=== PATIENT | male | born 1960 | race Caucasian/White ===

== ENCOUNTER 2018-10-16 08:58 | Emergency (ER) | payer OTHER ==
[~2018-10-16] VITALS: Ht 177.8 cm; Wt 109.8 kg
[~2018-10-16 08:58] MED LIST: ALEVE220 MG PO; ASPIR 8181 MG PO; CYCLOBENZAPRINE10 MG PO; DICLOFENAC SODI75 MG PO; FENOFIBRATE160 MG PO; FLONASE ALLERG9.9 ML NAS; GABAPENTIN300 MG PO; HYDROCODON-ACE1 EA10 PO; MIRAPEX0.125 MG PO; NORCO 10-325 T1 EACH PO; OXYCONTIN10 MG PO; PIROXICAM10 MG PO; PRAMIPEXOLE DI1.5 MG PO; THERAPEUTIC M1 EAC2 PO; XARELTO10 MG PO
[2018-10-16] MEDS ORDERED: ATORVASTATIN CA20 MG PO (09:05)
[2018-10-16] MEDS ORDERED: DICLOFENAC SOD100 G1 TOP (09:06)
== END 2018-10-16 09:20 | disposition home or self-care (01) ==
LOC: ED 08:58
DX: M54.9 Dorsalgia, unspecified (principal)

== ENCOUNTER 2020-09-27 21:43 | Emergency (ER) | payer OTHER ==
[~2020-09-27] VITALS: Ht 177.8 cm; Wt 103.4 kg
[~2020-09-27 21:43] MED LIST changes: +ATORVASTATIN CA20 MG PO; +DICLOFENAC SOD100 G1 TOP
[2020-09-27] MEDS ORDERED: BUPROPION XL150 MG PO (21:51)
== END 2020-09-27 23:40 | disposition home or self-care (01) ==
LOC: ED 21:43
DX: U07.1 COVID-19 (principal); E78.00 Pure hypercholesterolemia, unspecified; Z88.0 Allergy status to penicillin; Z79.899 Other long term (current) drug therapy
CPT/HCPCS: 71045; 80053; 83605; 85025; 87040; 99285-25

== ENCOUNTER 2022-02-09 09:47 | Emergency (ER) | payer OTHER ==
[~2022-02-09] VITALS: Ht 172.7 cm; Wt 112.5 kg
[~2022-02-09 09:47] MED LIST changes: +BUPROPION XL150 MG PO
--- OUTSIDE RECORDS SUMMARY | 2022-02-09 09:50 | XMS ---
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 Sylwia has no Care Guidelines for this patient. Genny VISIT COUNT (12 MO.) 1 [facility] TOTAL 1 NOTE: Visits indicate total known visits. ED/C VISIT TRACKING (12 MO.) 02/09/2022 09:48 [facility] [place] TYPE: Emergency COMPLAINT: - HEART ISSUES INPATIENT VISIT TRACKING (12 MO.) No inpatient visits to display in this time frame [id number]
[2022-02-09] MEDS ORDERED: METOPROLOL SUCC25 MG PO ×2 (10:04→12:30)
[2022-02-09] MEDS ORDERED: GABAPENTIN600 MG PO (10:05)
[2022-02-09] MEDS ORDERED: BUPROPION XL300 MG PO (10:05)
--- NOTE | 2022-02-10 16:39 | NUR ---
Patient called and stated his Zio monitor fell off after about 3 hours yesterday. Patient came back in and I prepared skin as per I-Rhythm instructions and placed a new monitor. I added opsite tape and gave instructions on swimming, bathing and showering. Sent extra opsite home with patient.
--- NOTE | 2022-02-12 17:12 | EKG ---
[facility] [address] [facility] [place] [address] Signed Atrial fibrillation with rapid ventricular response Inferior infarct (cited on or before 09-FEB-2022) Abnormal ECG When compared with ECG of 31-JAN-2016 09:56, Atrial fibrillation has replaced Sinus rhythm Vent. rate has increased BY 50 BPM T wave amplitude has increased in Anterior leads Confirmed by Garry Love MD () on 02/12/2022 5:12:29 PM Electronically Signed By: GARRY LOVE MD 02/12/22 171 PATIENT NAME: CASTILLO CROWELL Electrocardiogram DATE OF : 56 PHYSICIAN: GARRY LOVE MD REPORT #: [id number] REPORT IS CONFIDENTIAL AND NOT TO BE RELEASED WITHOUT AUTHORIZATION
--- NOTE | 2022-02-12 17:14 | EKG ---
[facility] [address] [facility] [place] [address] Signed Normal sinus rhythm Minimal voltage criteria for LVH, may be normal variant ( R in aVL ) Borderline ECG When compared with ECG of 09-FEB-2022 09:44, (Unconfirmed) Sinus rhythm has replaced Atrial fibrillation Confirmed by Garry Love MD () on 02/12/2022 5:14:03 PM Electronically Signed By: GARRY LOVE MD 02/12/22 1714 PATIENT NAME: CASTILLO CROWELL Electrocardiogram DATE OF : 56 PHYSICIAN: GARRY LOVE MD REPORT #: [id number] REPORT IS CONFIDENTIAL AND NOT TO BE RELEASED WITHOUT AUTHORIZATION
== END 2022-02-09 13:08 | disposition home or self-care (01) ==
LOC: ED 09:47
DX: I48.0 Paroxysmal atrial fibrillation (principal); E78.00 Pure hypercholesterolemia, unspecified; Z88.0 Allergy status to penicillin; Z79.899 Other long term (current) drug therapy
CPT/HCPCS: 36415; 71045; 80053; 83735; 84484; 85025; 85610; 87502; 93005; 93010; 99285-25; U0003

== ENCOUNTER 2022-02-12 16:30 | Emergency (ER) | payer OTHER ==
[~2022-02-12] VITALS: Ht 172.7 cm; Wt 112.9 kg
[~2022-02-12 16:30] MED LIST changes: +BUPROPION XL300 MG PO; +GABAPENTIN600 MG PO; +METOPROLOL SUCC25 MG PO
--- OUTSIDE RECORDS SUMMARY | 2022-02-12 16:32 | XMS ---
PreManage Notification: CASTILLO CROWELL Security Pcas Events No recent Security Events currently on file CRITERIA MET - [facility] [place] - 2 Visits in 30 Days - [facility] [place] CARE PROVIDERS There are no care providers on record at this time. Sylwia has no Care Guidelines for this patient. Genny [facility] (12 MO.) [facility] NOTE: Visits indicate total known visits. ED/[facility] [place] VISIT TRACKING (12 MO.) 02/12/2022 16:31 [facility] COMPLAINT: - HEART PALPITATIONS 02/09/2022 09:48 [facility] [place] TYPE: Emergency COMPLAINT: - HEART ISSUES INPATIENT VISIT TRACKING (12 MO.) No inpatient visits to display in this time frame [id number]
--- NOTE | 2022-02-12 17:42 | EKG ---
[facility] [address] [facility] [place] [address] Signed Sinus rhythm with occasional premature ventricular complexes Otherwise normal ECG When compared with ECG of 09-FEB-2022 11:19, (Unconfirmed) premature ventricular complexes are now present Confirmed by Garry Love MD () on 02/12/2022 5:42:09 PM Electronically Signed By: GARRY LOVE MD 02/12/221741 PATIENT NAME: CASTILLO CROWELL Electrocardiogram DATE OF : 56 PHYSICIAN: GARRY LOVE MD REPORT #: [id number] REPORT IS CONFIDENTIAL AND NOT TO BE RELEASED WITHOUT AUTHORIZATION
== END 2022-02-12 18:42 | disposition home or self-care (01) ==
LOC: ED 16:30
DX: I48.0 Paroxysmal atrial fibrillation (principal); E78.00 Pure hypercholesterolemia, unspecified; Z88.0 Allergy status to penicillin; Z79.899 Other long term (current) drug therapy
CPT/HCPCS: 36415; 80053; 83735; 84484; 85025; 93005; 93010; 99285-25

== ENCOUNTER 2022-06-20 10:16 | Emergency (ER) | payer OTHER ==
[~2022-06-20] VITALS: Ht 172.7 cm; Wt 11260.4 kg
[2022-06-20] MEDS ORDERED: HYDROCODON-ACE1 EA11 PO (13:29)
[2022-06-20] MEDS ORDERED: LEVOFLOXACIN750 MG PO (13:29)
[2022-06-21] MEDS ORDERED: HYDROCODON-ACE1 EA11 PO (15:56)
== END 2022-06-20 15:29 | disposition home or self-care (01) ==
LOC: ED 10:16
DX: N45.3 Epididymo-orchitis (principal); N39.0 Urinary tract infection, site not specified; E78.00 Pure hypercholesterolemia, unspecified; Z88.0 Allergy status to penicillin; Z79.899 Other long term (current) drug therapy
CPT/HCPCS: 36415; 76870; 80053; 81001; 85025; 96365; 96366; 96375; 99284-25; A9270; J1170; J1885; J1956; J2405; J7030

== ENCOUNTER 2022-06-21 13:50 | Emergency (ER) | payer OTHER ==
[~2022-06-21] VITALS: Ht 172.7 cm; Wt 112.5 kg
[~2022-06-21 13:50] MED LIST changes: +HYDROCODON-ACE1 EA11 PO; +LEVOFLOXACIN750 MG PO
--- OUTSIDE RECORDS SUMMARY | 2022-06-21 13:52 | XMS ---
PreManage Notification: CASTILLO CROWELL Security Domestic Housekeeper Events No recent Security Events currently on file CRITERIA MET - [facility] - 2 Visits in 30 Days CARE PROVIDERS There are no care providers on record at this time. Sylwia has no Care Guidelines for this patient. Genny VISIT COUNT (12 MO.) [address] [facility] [place] TOTAL 4 NOTE: Visits indicate total known visits. ED/C VISIT TRACKING (12 MO.) 06/21/2022 13:51 [facility] TYPE: Emergency COMPLAINT: - TESTICULAR PAIN 06/20/2022 10:17 [facility] [place] TYPE: Emergency COMPLAINT: - R TESTICLE PAIN 02/12/2022 16:31 [facility] [place] TYPE: Emergency COMPLAINT: - HEART PALPITATIONS DIAGNOSES: - Other terminal computer operator (current) drug therapy - Pure hypercholesterolemia, unspecified - Allergy status to penicillin - Paroxysmal atrial fibrillation - Palpitations 02/09/2022 09:48 [facility] [place] TYPE: Emergency COMPLAINT: - HEART ISSUES DIAGNOSES: - Other terminal computer operator (current) drug therapy - Palpitations - Allergy status to penicillin - Pure hypercholesterolemia, unspecified - Contact with and (suspected) exposure to COVID-19 - Paroxysmal atrial fibrillation INPATIENT VISIT TRACKING (12 MO.) No inpatient visits to display in this time frame [id number]
[2022-06-21] MEDS ORDERED: HYDROCODON-ACE1 EA11 PO (15:56)
== END 2022-06-21 16:18 | disposition home or self-care (01) ==
LOC: ED 13:50
DX: N45.3 Epididymo-orchitis (principal); E78.00 Pure hypercholesterolemia, unspecified; Z88.0 Allergy status to penicillin; Z79.899 Other long term (current) drug therapy
CPT/HCPCS: 36415; 80053; 85025; 96374; 99284-25; A9270; J1885; J7030

== ENCOUNTER 2024-09-25 17:06 | Emergency (ER) | payer MEDICARE, OTHER ==
[~2024-09-25] VITALS: Ht 172.7 cm; Wt 114.5 kg
[~2024-09-25 17:06] MED LIST changes: +AMIODARONE HCL200 MG PO; +AMOX TR-K CLV1 EAC1 PO; +CEPHALEXIN500 M1 PO; +ELIQUIS5 MG PO; +FLOMAX0.4 MG PO; +METOPROLOL TART50 MG; +PANTOPRAZOLE SO40 MG PO; +ROSUVASTATIN CA10 MG PO; +SULFAMETHOXAZO1 EAC1 PO; +TORSEMIDE10 MG PO
[2024-09-25] MEDS ORDERED: OZEMPIC1 MG/0.71 SUB-Q (18:22)
[2024-09-25 18:43] LABS: BASOPHILS 0.6 % (0.2-1.2); EOSINOPHILS 1.7 % (0.8-7.0); HEMOGLOBIN 14.7 g/dL (13.7-17.5); LYMPHOCYTES 15.8 % (21.8-53.1); MCH 30.1 PG (25.7-32.2); MCHC 32.7 g/dL (32.3-36.5); MCV 92.2 fL (79.0-92.2); MONOCYTES 8.8 % (5.3-12.2); NEUTROPHILS 71.9 % (34.0-67.9); PLATELET COUNT 178 K/uL (163-337); RBC 4.88 M/uL (4.63-6.08)
[2024-09-25 19:02] LABS: ALBUMIN 3.7 g/dL (3.4-5.0); ALBUMIN/GLOBULIN RATIO 1.06 (1.1-2.4); ANION GAP 7.8 (7-21); BILIRUBIN, TOTAL 0.5 mg/dL (0.2-1.0); BUN/CREATININE RATIO 26.66 (6.0-28.6); CALCIUM 9.4 mg/dL (8.5-10.1); CREATININE, SERUM 0.75 mg/dL (0.70-1.30); MAGNESIUM 2.1 mg/dL (1.8-2.4); POTASSIUM 3.8 mmol/L (3.5-5.1); PROTEIN, TOTAL 7.2 g/dL (6.4-8.2)
[2024-09-25 19:03] LABS: INR 1.09 (0.80-1.30); PROTIME 13.5 Sec (11.2-14.2)
[2024-09-25 21:22] VITALS: BP 118/94
--- NOTE | 2024-09-25 21:44 | EKG ---
[facility] [address] [place] [address] Signed Sinus rhythm with frequent premature ventricular complexes Inferior infarct (cited on or before 27-JAN-2023) Cannot rule out Anterior infarct , age undetermined Abnormal ECG When compared with ECG of 27-JAN-2023 19:46, premature ventricular complexes are now present Nonspecific T wave abnormality, improved in Anterolateral leads Confirmed by Garry Love MD () on 09/25/2024 9:44:04 PM Electronically Signed By: GARRY LOVE MD 09/25/24 2144 PATIENT NAME: CASTILLO CROWELL Electrocardiogram DATE OF : 56 PHYSICIAN: GARRY LOVE MD REPORT #: [id number] REPORT IS CONFIDENTIAL AND NOT TO BE RELEASED WITHOUT AUTHORIZATION
== END 2024-09-25 21:22 | disposition home or self-care (01) ==
LOC: ED 17:06
PROVIDERS: Emergency Medicine
DX: I49.3 Ventricular premature depolarization (principal)
CPT/HCPCS: 36415; 71045; 80053; 83735; 84484; 85025; 85610; 93005; 93010; 93242; 93244; 99285-25

== ENCOUNTER 2024-12-04 12:24 | Emergency (ER) | payer MEDICARE, OTHER ==
[~2024-12-04] VITALS: Ht 172.7 cm; Wt 116.7 kg
[~2024-12-04 12:24] MED LIST changes: +OZEMPIC1 MG/0.71 SUB-Q
[2024-12-04] MEDS ORDERED: ALBUTEROL/IPRATROPIUM 3 ML NEB INH PRN (13:00)
[2024-12-04 13:13] LABS: BASOPHILS 0.4 % (0.2-1.2); EOSINOPHILS 1.9 % (0.8-7.0); LYMPHOCYTES 10.6 % (21.8-53.1); MCH 30.3 PG (25.7-32.2); MCHC 31.1 g/dL (32.3-36.5); MCV 97.3 fL (79.0-92.2); MONOCYTES 8.0 % (5.3-12.2); NEUTROPHILS 78.4 % (34.0-67.9); RBC 4.39 M/uL (4.63-6.08)
[2024-12-04 13:36] LABS: ALT (SGPT) 47.0 U/L (14-59); AST (SGOT) 29.0 U/L (15-37); GLOMERULAR FILTRATION RATE,EST 99.0 mL/min (>60); PROTEIN, TOTAL 6.6 g/dL (6.4-8.2); UREA NITROGEN 19.0 mg/dL (7-18)
[2024-12-04] MEDS ORDERED: FUROSEMIDE 40 MG/4 ML VIAL IV ONE ×2 (14:15→17:15)
[2024-12-04 15:08] LABS: INFLUENZA B NAA NEGATIVE (NEGATIVE); RESPIRATORY SYNCYTIAL VIR NAA NEGATIVE (NEGATIVE)
[2024-12-04 18:45] VITALS: BP 116/93
--- NOTE | 2024-12-05 11:43 | EKG ---
[facility] [address] [facility] [place], [place] [address] Signed Normal sinus rhythm Cannot rule out Inferior infarct (cited on or before 27-JAN-2023) Abnormal ECG When compared with ECG of 03-OCT-2024 12:21, No significant change was found Confirmed by Leonel Gomez MD ([id number]) on 12/05/2024 11:43:11 AM Electronically Signed By: LEONEL GOMEZ MD 12/05/24 1143 PATIENT NAME: CASTILLO CROWELL Electrocardiogram DATE OF : 56 PHYSICIAN: LEONEL GOMEZ MD REPORT #: [id number] REPORT IS CONFIDENTIAL AND NOT TO BE RELEASED WITHOUT AUTHORIZATION
== END 2024-12-04 18:50 | disposition home or self-care (01) ==
LOC: ED 12:24
PROVIDERS: Emergency Medicine
DX: I50.9 Heart failure, unspecified (principal); Z79.01 Long term (current) use of anticoagulants; Z79.899 Other long term (current) drug therapy
CPT/HCPCS: 36415; 71045; 80053; 83735; 83880; 84484; 85025; 85379; 87502; 93005; 93010; 93306; 93308; 94640; 96374; 96376; 99285-25; J1938; U0002

== ENCOUNTER 2024-12-11 12:11 | Emergency (ER) | payer MEDICARE, OTHER ==
[~2024-12-11] VITALS: Ht 172.7 cm; Wt 118.5 kg
--- OUTSIDE RECORDS SUMMARY | 2024-12-11 12:17 | XMS ---
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 [place] - 2 Visits in 30 Days CARE PROVIDERS There are no care providers on record at this time. Sylwia has no Care Guidelines for this patient. Genny VISIT COUNT (12 MO.) 4 [facility] [place] [facility] TOTAL 4 NOTE: Visits indicate total known visits. ED/[facility] [place] VISIT TRACKING (12 MO.) 12[facility]11[facility]2024 12:[facility] COMPLAINT: - CHEST PAIN 12/04/2024 12:25 [facility] [place] TYPE: Emergency COMPLAINT: - DIFFICULTY BREATHING DIAGNOSES: - Heart failure, unspecified - half-way (current) use of anticoagulants - Other supervisor intermediates (current) drug therapy - Shortness of breath 10/03/2024 12:18 [facility] [place] TYPE: Emergency COMPLAINT: - HEART RATE ISSUE DIAGNOSES: - half-way (current) use of anticoagulants - Long-term (current) use of injectable non-insulin antidiabetic drugs - Other supervisor intermediates (current) drug therapy - Palpitations - Presence of prosthetic heart valve - Pure hypercholesterolemia, unspecified - Unspecified atrial fibrillation - Ventricular premature depolarization 09/25/2024 17:06 [facility] [place] TYPE: Emergency COMPLAINT: - HEART RACING DIAGNOSES: - Palpitations - Ventricular premature depolarization INPATIENT VISIT TRACKING (12 MO.) No inpatient visits to display in this time frame [id number]
[2024-12-11 12:22] LABS: BASOPHILS 0.7 % (0.2-1.2); EOSINOPHILS 2.6 % (0.8-7.0); LYMPHOCYTES 16.3 % (21.8-53.1); MCH 30.0 PG (25.7-32.2); MCHC 32.4 g/dL (32.3-36.5); MCV 92.7 fL (79.0-92.2); MONOCYTES 7.9 % (5.3-12.2); NEUTROPHILS 71.7 % (34.0-67.9); RBC 4.36 M/uL (4.63-6.08)
[2024-12-11 12:46] LABS: ALT (SGPT) 45.0 U/L (14-59); AST (SGOT) 25.0 U/L (15-37); GLOMERULAR FILTRATION RATE,EST 89.0 mL/min (>60); PROTEIN, TOTAL 6.5 g/dL (6.4-8.2); UREA NITROGEN 18.0 mg/dL (7-18)
[2024-12-11 15:30] VITALS: BP 113/71
--- NOTE | 2024-12-11 22:48 | EKG ---
[facility] [address] [facility] [place] [address] Signed Normal sinus rhythm Inferior infarct (cited on or before 27-JAN-2023) Cannot rule out Anterior infarct , age undetermined ST \T\ T wave abnormality, consider lateral ischemia Abnormal ECG When compared with ECG of 04-DEC-2024 13:24, Nonspecific T wave abnormality now evident in Inferior leads Poor data quality in lead II Confirmed by Garry Love MD () on 12/11/2024 10:48:10 PM Electronically Signed By: GARRY LOVE MD 12/11/24 2248 PATIENT NAME: CASTILLO CROWELL Electrocardiogram DATE OF : 56 PHYSICIAN: GARRY LOVE MD REPORT #: [id number] REPORT IS CONFIDENTIAL AND NOT TO BE RELEASED WITHOUT AUTHORIZATION
== END 2024-12-11 15:31 | disposition home or self-care (01) ==
LOC: ED 12:11
PROVIDERS: Emergency Medicine
DX: R07.9 Chest pain, unspecified (principal); E78.00 Pure hypercholesterolemia, unspecified; I50.9 Heart failure, unspecified; I48.0 Paroxysmal atrial fibrillation; Z95.2 Presence of prosthetic heart valve; Z79.01 Long term (current) use of anticoagulants; Z79.85 Long-term (current) use of injectable non-insulin antidiabetic drugs; Z79.899 Other long term (current) drug therapy
CPT/HCPCS: 36415; 71045; 80053; 83735; 83880; 84484; 85025; 93005; 93010; 99285-25